=== PATIENT | female | born 1975 | race Caucasian/White ===

== ENCOUNTER 2019-02-10 20:32 | Emergency (ER) | payer OTHER ==
--- NOTE | 2019-02-10 20:54 | EDM.PDOC ---
ED HPI GENERAL MEDICAL PROBLEM - General Chief Complaint: Lower Extremity Injury/Pain Stated Complaint: HURT ANKLE IN LIVING ROOM Time Seen by Provider: 02/10/19 20:53 Source of Information: Reports: Patient History Limitations: Reports: No Limitations - History of Present Illness INITIAL COMMENTS - FREE TEXT/NARRATIVE: 43 years old female patient presented with a chief complaint of right ankle injury. She Shot the recliner on her right ankle. Complaining of pain worse was weightbearing, swollen. And tender. She took naproxen prior to arrival. No other injuries. 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 ED EXAM, GENERAL - Physical Exam Exam: See Below Exam Limited By: No Limitations General Appearance: Alert, WD/WN, No Apparent Distress Ears: Normal External Exam, Normal Canal, Hearing Grossly Normal, Normal TMs Ear Exam: Bilateral Ear: Auricle Normal, Canal Normal, TM normal Nose: Normal Inspection, Normal Mucosa, No Blood Throat/Mouth: Normal Inspection, Normal Lips, Normal Teeth, Normal Gums, Normal Oropharynx, Normal Voice, No Airway Compromise Head: Atraumatic, Normocephalic Neck: Normal Inspection, Supple, Non-Tender, Full Range of Motion Respiratory/Chest: No Respiratory Distress, Lungs Clear, Normal Breath Sounds, No Accessory Muscle Use, Chest Non-Tender Cardiovascular: Normal Peripheral Pulses, Regular Rate, Rhythm, No Edema, No Gallop, No JVD, No Murmur, No Rub GI/Abdominal: Normal Bowel Sounds, Soft, Non-Tender, No Organomegaly, No Distention, No Abnormal Bruit, No Mass Rectal (Female) Exam: Normal Exam, Normal Rectal Tone Back Exam: Normal Inspection, Full Range of Motion, NT Extremities: Other (Tenderness, swelling, over the lateral right malleolus. pain limitation of the range of motion of the right ankle.) Neurological: Alert, Oriented, CN II-XII Intact, Normal Cognition, Normal Gait, Normal Reflexes, No Motor/Sensory Deficits Psychiatric: Normal Affect, Normal Mood Skin Exam: Warm, Dry, Intact, Normal Color, No Rash Lymphatic: No Adenopathy Course - Vital Signs Last Recorded V/S: Last Vital Signs Temp 36.6 C 02/10/19 21:02 Pulse 77 02/10/19 21:02 Resp 16 02/10/19 21:02 BP 152/103 H 02/10/19 21:02 Pulse Ox 98 02/10/19 21:02 - Radiology Interpretation Free Text/Narrative:: Patient was seen and examined shortly after arrival. Stable. She received naproxen at home, ice. X-ray shows no acute displaced fracture. So this is most likely sprain. Provided was ankle splint. Advised to rest, ice, elevation, compression, weightbearing as tolerated, follow-up with orthopedic within a week. Tylenol or ibuprofen for pain. Come back if symptom worsen. Patient agrees with the plan. Stable for discharge. Departure - Departure Time of Disposition: 21:41 Disposition: Home, Self-Care 01 Condition: Good Clinical Impression: Right ankle sprain - Discharge Information *PRESCRIPTION DRUG MONITORING PROGRAM REVIEWED*: Not Applicable *COPY OF PRESCRIPTION DRUG MONITORING REPORT IN PATIENT RASHAD: Not Applicable Instructions: Ankle Sprain Referrals: Gabi Peter MD [Primary Care Provider] - Forms: ED Department Discharge Additional Instructions: Advised to rest, ice, elevation, compression, weightbearing as tolerated, follow -up with orthopedic within a week. Tylenol or ibuprofen for pain. Come back if symptom worsen. - Assessment/Plan Plan: Advised to rest, ice, elevation, compression, weightbearing as tolerated, follow -up with orthopedic within a week. Tylenol or ibuprofen for pain. Come back if symptom worsen.
[2019-02-10 20:59] VITALS: BP 152/103; PULSE 77
--- NOTE | 2019-02-10 21:38 | CRLCR ---
Indication: Injury Technique: Three views of the right ankle Comparison: None available Findings: Bones: Alignment is normal. No fractures or bone lesions. Joint spaces: Unremarkable. Soft tissues: Apparent soft tissue swelling inferior to the lateral malleolus. Impression: No acute fracture or dislocation. Dictated by Ry Joseph MD @ 02/10/2019 9:37:07 PM Dictated by: Ry Joseph MD @ 02/10/2019 21:37:27 (Electronically Signed)
== END 2019-02-10 22:00 | disposition home or self-care (01) ==
LOC: JP.ED 20:32
DX: S93.401A Sprain of unspecified ligament of right ankle, initial encounter (principal); W22.8XXA Striking against or struck by other objects, initial encounter
CPT/HCPCS: 73610-RT; 99282; 99283-25

== ENCOUNTER 2019-11-27 18:25 | Emergency (ER) | payer SELFPAY, OTHER ==
[2019-11-27 18:39] VITALS: BP 146/83; PULSE 65
--- NOTE | 2019-11-27 19:55 | EDM.PDOCBH ---
ED HPI GENERAL MEDICAL PROBLEM - General Chief Complaint: Behavioral/Psych Stated Complaint: EVAL Time Seen by Provider: 11/27/19 19:30 Source of Information: Reports: Patient, RN, RN Notes Reviewed History Limitations: Reports: No Limitations - History of Present Illness INITIAL COMMENTS - FREE TEXT/NARRATIVE: 43 year old female presents to ED for feelings of wanting to harm herself. She had a history of depression in 2016 after the loss of her mother. She was on sertraline at that time and felt it was effective. She moved to the [facility] in 2018 and quit taking her meds at that time. Currently, she lives with ROSSY Jacob and she states their relationship is "guillermo" which is contributing to her current feelings of depression. She feels that Nidia and Nidia's mother are both supportive of her and she feels safe with them. Kalee is currently seeing Dr. Gabi Peter and she was restarted on her sertraline 2 weeks ago but feels that it is not working yet. SHe is also taking hydroxine for anxiety daily but doesn't feel like that is working also. She didn't realize that she could be taking it up to 3 times daily as needed. Kalee has feelings of wanting to hurt herself but has no plan. She has no previous suicidal attempts. She has an appointment set up with [facility] on December 01. Denies any current or history of illicit drug use of alcohol abuse. Onset: Gradual Duration: Week(s): (2), Getting Worse denies pain Pain Score (Numeric/FACES): 0 - Related Data Allergies Allergy/AdvReac Type Severity Reaction Status Date / Time No Known Allergies Allergy Verified 11/27/19 19:45 Home Meds: Home Meds Naproxen 250 - 500 mg PO Q8HR PRN 07/21/19 [History] Sertraline HCl [Zoloft] 50 mg PO DAILY 11/27/19 [History] hydrOXYzine pamoate [Hydroxyzine Pamoate] 25 mg PO TID PRN 11/27/19 [History] Past Medical History HEENT History: Reports: Impaired Vision Cardiovascular History: Reports: Arrhythmia, Other (See Below) Other Cardiovascular History: had an 'extra bridge' Respiratory History: Reports: None Gastrointestinal History: Reports: None Genitourinary History: Reports: None 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 R plantar fascitis Neurological History: Reports: None Psychiatric History: Reports: Anxiety, Panic Attack Endocrine/Metabolic History: Reports: Obesity/BMI 30+ Hematologic History: Reports: None Oncologic (Cancer) History: Reports: None Dermatologic History: Reports: None - Infectious Disease History Infectious Disease History: Reports: Chicken Pox - Past Surgical History Head Surgeries/Procedures: Reports: None HEENT Surgical History: Reports: Oral Surgery Cardiovascular Surgical History: Reports: Cardiac Ablation Musculoskeletal Surgical History: Reports: None Social & Family History - Caffeine Use Caffeine Use: Reports: Soda, Tea ED ROS GENERAL - Review of Systems Review Of Systems: Comprehensive ROS is negative, except as noted in HPI. ED EXAM, BEHAVIORAL HEALTH - Physical Exam Exam: See Below Exam Limited By: No Limitations General Appearance: Alert, No Apparent Distress Eye Exam: Bilateral Eye: PERRL Ears: Normal External Exam, Normal TMs, Other (left ear cerumen) Nose: Normal Inspection Throat/Mouth: Normal Inspection Head: Atraumatic, Normocephalic Neck: Normal Inspection, Supple, Non-Tender, Full Range of Motion Respiratory/Chest: No Respiratory Distress, Lungs Clear Cardiovascular: Normal Peripheral Pulses, Regular Rate, Rhythm, No Edema, No Murmur GI/Abdominal: Normal Bowel Sounds Neurological: Alert Psychiatric: Depressed Mood, Flat Affect Skin Exam: Warm, Dry, Intact COURSE, BEHAVIORAL HEALTH COMP - Course Vital Signs: Last Vital Signs Temp 97.7 F 11/27/19 19:47 Pulse 65 11/27/19 19:47 Resp 16 11/27/19 19:47 BP 146/83 H 11/27/19 19:47 Pulse Ox 98 11/27/19 19:47 Orders, Labs, Meds: Laboratory Tests 11/27/19 11/27/19 11/27/19 Range/Units 19:55 19:55 19:55 WBC 12.6 H (4.5-11.0) K/uL RBC 5.01 (3.30-5.50) M/uL Hgb 14.0 (12.0-15.0) g/dL Hct 42.2 (36.0-48.0) % MCV 84 (80-98) fL MCH 28 (27-31) pg MCHC 33 (32-36) % Plt Count 305 (150-400) K/uL Neut % (Auto) 76 H (36-66) % Lymph % (Auto) 19 L (24-44) % [place] % (Auto) 5 (2-6) % Eos % (Auto) 1 L (2-4) % Baso % (Auto) 0 (0-1) % Sodium 138 L (140-148) mmol/L Potassium 3.4 L (3.6-5.2) mmol/L Chloride 104 (100-108) mmol/L Carbon Dioxide 26 (21-32) mmol/L Anion Gap 11.4 (5.0-14.0) mmol/L BUN 9 (7-18) mg/dL Creatinine 0.9 (0.6-1.0) mg/dL Est Cr Clr Drug Dosing 68.88 mL/min Estimated GFR (MDRD) > 60 (>60) Glucose 91 (74-106) mg/dL Calcium 8.8 (8.5-10.1) mg/dL TSH, Ultra Sensitive 1.057 (0.358-3.740) uIU/mL Urine Opiates Screen (NEGATIVE) Ur Oxycodone Screen (NEGATIVE) Urine Methadone Screen (NEGATIVE) Ur Propoxyphene Screen (NEGATIVE) Ur Barbiturates Screen (NEGATIVE) Ur Tricyclics Screen (NEGATIVE) Ur Phencyclidine Scrn (NEGATIVE) Ur Amphetamine Screen (NEGATIVE) U Methamphetamines Scrn (NEGATIVE) Urine MDMA Screen (NEGATIVE) U Benzodiazepines Scrn (NEGATIVE) U Cocaine Metab Screen (NEGATIVE) U Marijuana (THC) Screen (NEGATIVE) Ethyl Alcohol < 3 mg/dL 11/27/19 Range/Units 20:12 WBC (4.5-11.0) K/uL RBC (3.30-5.50) M/uL Hgb (12.0-15.0) g/dL Hct (36.0-48.0) % MCV (80-98) fL MCH (27-31) pg MCHC (32-36) % Plt Count (150-400) K/uL Neut % (Auto) (36-66) % Lymph % (Auto) (24-44) % [place] % (Auto) (2-6) % Eos % (Auto) (2-4) % Baso % (Auto) (0-1) % Sodium (140-148) mmol/L Potassium (3.6-5.2) mmol/L Chloride (100-108) mmol/L Carbon Dioxide (21-32) mmol/L Anion Gap (5.0-14.0) mmol/L BUN (7-18) mg/dL Creatinine (0.6-1.0) mg/dL Est Cr Clr Drug Dosing mL/min Estimated GFR (MDRD) (>60) Glucose (74-106) mg/dL Calcium (8.5-10.1) mg/dL TSH, Ultra Sensitive (0.358-3.740) uIU/mL Urine Opiates Screen Negative (NEGATIVE) Ur Oxycodone Screen Negative (NEGATIVE) Urine Methadone Screen Negative (NEGATIVE) Ur Propoxyphene Screen Negative (NEGATIVE) Ur Barbiturates Screen Negative (NEGATIVE) Ur Tricyclics Screen Negative (NEGATIVE) Ur Phencyclidine Scrn Negative (NEGATIVE) Ur Amphetamine Screen Negative (NEGATIVE) U Methamphetamines Scrn Negative (NEGATIVE) Urine MDMA Screen Negative (NEGATIVE) U Benzodiazepines Scrn Negative (NEGATIVE) U Cocaine Metab Screen Negative (NEGATIVE) U Marijuana (THC) Screen Negative (NEGATIVE) Ethyl Alcohol mg/dL Medications Discontinued Medications Generic Name Dose Route Start Last Admin Trade Name Freq PRN Reason Stop Dose Admin Acetaminophen 1,000 mg 11/27/19 20:32 11/27/19 21:06 Tylenol Extra Strength PO 11/27/19 20:33 1,000 mg ONETIME ONE Administration Re-Assessment/Re-Exam: After further discussion with patient, it is noted that Kalee's SO is not currently living at the house right now. She is staying at a friends house so patient is currently living alone. Labs were reassuring, alcohol and drug screen negative. Kalee is cooperative and answers questions appropriately and willing with some encouragement to elaborate on responses. call to [facility] in [place], [place] for voluntary placement. Beds are available there and they are reviewing her case. Awaiting a call back. tylenol given for headache. 21:[address] Swift at [facility] in [place], [place] Departure - Departure Time of Disposition: 22:42 Disposition: DC/Tfer to Psych Hosp/Unit 65 Condition: Good Clinical Impression: Depression with suicidal ideation - Discharge Information *PRESCRIPTION DRUG MONITORING PROGRAM REVIEWED*: Not Applicable *COPY OF PRESCRIPTION DRUG MONITORING REPORT IN PATIENT RASHAD: Not Applicable Instructions: Major Depressive Disorder, Adult, Suicidal Feelings: How to Help Yourself Referrals: Gabi Peter MD [Primary Care Provider] - Forms: Interfacility Transfer EMTALA, ED Department Discharge Additional Instructions: patient will be transferred to [facility] in [place], [place] by her SO Nidia and a mutual male friend. they have been advised to go directly there. Sepsis Event Note - Focused Exam Vital Signs: Vital Signs Temp Pulse Resp BP Pulse Ox 11/27/19 19:47 97.7 F 65 16 146/83 H 98 11/27/19 18:37 97.7 F 65 16 146/83 H 98 Date Exam was Performed: 11/27/19 Time Exam was Performed: 22:42 - Assessment/Plan Plan: patient will be transferred to [facility] in [place], [place] by her SO Nidia and a mutual male friend. they have been advised to go directly there.
[2019-11-27] MEDS ORDERED: Acetaminophen 500 MG Tab PO ONE (20:32)
== END 2019-11-27 23:00 ==
LOC: JP.ED 18:25
DX: F32.9 Major depressive disorder, single episode, unspecified (principal); F41.0 Panic disorder [episodic paroxysmal anxiety]; E66.9 Obesity, unspecified; Z68.42 Body mass index [BMI] 45.0-49.9, adult; Z79.899 Other long term (current) drug therapy
CPT/HCPCS: 36415; 80048; 80305; 80307; 84443; 85025; 99285; A9270